=== PATIENT | female | born 1930 | race Caucasian/White ===

== ENCOUNTER 2018-11-25 20:43 | Emergency (ER) | payer SELFPAY ==
--- NOTE | 2018-11-25 21:13 | NUR ---
PATIENT AND FAMILY LEFT. THEY STATED THEY COULD NOT WAIT ANY LONGER. PATIENT LEFT WITHOUT BEING TRIAGED
== END 2018-11-25 21:15 | disposition left against medical advice (07) ==
LOC: ER 20:43
DX: Z53.21 Procedure and treatment not carried out due to patient leaving prior to being seen by health care provider (principal)